=== PATIENT | male | born 1990 | race Caucasian/White ===

== ENCOUNTER 2017-10-19 23:37 | Emergency (ER) | payer OTHER ==
--- NOTE | 2017-10-19 23:52 | ER Report ---
History and Physical Time Seen By MD: 23:51 Hx. of Stated Complaint: PT REPORTS FEVER AND SOB AFTER IMMUNIZATIONS TODAY. HPI/ROS CHIEF COMPLAINT: fevers HISTORY OF PRESENT ILLNESS: This is a 27 year old male. he has fevers tonight. Had a sore throat yesterday, and was feeling a little short of breath tonight. Mild cough. Had immunizations today. Took Ibuprofen 200mg over the counter tablet x1 earlier today. No chest pain. Normal bowels without diarrhea. Normal urination without dysuria. Had diffuse musculoskeletal pain. Reports may students sick and he works in the dorms as RA maintenance supervisor mechanical. Allergies: Coded Allergies: No Known Drug Allergies (Unverified , 10/19/17) Home Meds No Active Prescriptions or Reported Meds Reviewed Nurses Notes: Yes Hx Substance Use Disorder: No Hx Alcohol Use: No Constitutional Vital Sign - Last 24 Hours 10/19/17 10/20/17 10/20/17 23:43 01:14 01:29 Temp 102.2 100.2 Pulse 114 110 85 Resp 24 16 B/P (MAP) 133/82 128/88 (101) Pulse Ox 92 92 O2 Delivery Room Air Room Air Physical Exam General Appearance: The patient is alert, has no immediate need for airway protection and no current signs of toxicity. Eyes: Pupils equal and round no injection. ENT: Normal oral mucosa. Moist mucous membranes. Tympanic membranes are normal. Neck: Neck is supple and non tender. Respiratory: Chest is non tender, lungs are clear to auscultation. Cardiac: regular rate and rhythm Gastrointestinal: Abdomen is soft and non tender, no masses, bowel sounds normal. Musculoskeletal: Extremities have full range of motion. Diffuse musculoskeletal pain. Skin: No rashes or lesions. DIFFERENTIAL DIAGNOSIS: After history and physical exam differential diagnosis was considered for fever, could be due to immunizations, but could be due to viral syndrome or pulmonary infectious process. Medical Decision Making Data Points Result Diagram: 10/19/17 4735 10/19/17 2704 Laboratory Hematology Test 10/19/17 23:45 10/20/17 00:07 Red Blood Count 5.69 M/uL (4.00-5.60) Mean Corpuscular Volume 81.8 fL (80.0-96.0) Mean Corpuscular Hemoglobin 28.8 pg (26.0-33.0) Mean Corpuscular Hemoglobin Concent 35.2 g/dL (32.0-36.0) Red Cell Distribution Width 13.1 % (11.5-14.5) Mean Platelet Volume 7.5 fL (7.2-11.1) Neutrophils (%) (Auto) 90.0 % (39.4-72.5) Lymphocytes (%) (Auto) 3.5 % (17.6-49.6) Monocytes (%) (Auto) 5.9 % (4.1-12.4) Eosinophils (%) (Auto) 0.3 % (0.4-6.7) Basophils (%) (Auto) 0.3 % (0.3-1.4) Nucleated RBC Relative Count (auto) 0.0 /100WBC Neutrophils # (Auto) 6.5 K/uL (2.0-7.4) Lymphocytes # (Auto) 0.3 K/uL (1.3-3.6) Monocytes # (Auto) 0.4 K/uL (0.3-1.0) Eosinophils # (Auto) 0.0 K/uL (0.0-0.5) Basophils # (Auto) 0.0 K/uL (0.0-0.1) Nucleated RBC Absolute Count (auto) 0.00 K/uL Erythrocyte Sedimentation Rate 7 mm/HOUR (0-15) Sodium Level 138 mmol/L (137-145) Potassium Level 3.5 mmol/L (3.5-5.0) Chloride Level 100 mmol/L (98-107) Carbon Dioxide Level 22 mmol/L (22-30) Blood Urea Nitrogen 14 mg/dl (9-21) Creatinine 0.80 mg/dl (0.66-1.25) Glomerular Filtration Rate Calc > 60.0 Random Glucose 158 mg/dl (75-110) Calcium Level 9.6 mg/dl (8.4-10.2) Total Bilirubin 0.6 mg/dl (0.2-1.3) Aspartate Amino Transf (AST/SGOT) 36 U/L (0-35) Alanine Aminotransferase (ALT/SGPT) 42 U/L (0-56) Alkaline Phosphatase 39 U/L (0-126) Total Protein 7.9 g/dl (6.3-8.2) Albumin 4.6 g/dl (3.5-5.0) Influenza Virus Type A (PCR) Negative (NEGATIVE) Influenza Virus Type B (PCR) Negative (NEGATIVE) Chemistry Test 10/19/17 23:45 10/20/17 00:07 White Blood Count 7.2 k/uL (4.5-11.0) Red Blood Count 5.69 M/uL (4.00-5.60) Hemoglobin 16.4 g/dL (14.0-18.0) Hematocrit 46.6 % (42.0-52.0) Mean Corpuscular Volume 81.8 fL (80.0-96.0) Mean Corpuscular Hemoglobin 28.8 pg (26.0-33.0) Mean Corpuscular Hemoglobin Concent 35.2 g/dL (32.0-36.0) Red Cell Distribution Width 13.1 % (11.5-14.5) Platelet Count 176 K/uL (150-450) Mean Platelet Volume 7.5 fL (7.2-11.1) Neutrophils (%) (Auto) 90.0 % (39.4-72.5) Lymphocytes (%) (Auto) 3.5 % (17.6-49.6) Monocytes (%) (Auto) 5.9 % (4.1-12.4) Eosinophils (%) (Auto) 0.3 % (0.4-6.7) Basophils (%) (Auto) 0.3 % (0.3-1.4) Nucleated RBC Relative Count (auto) 0.0 /100WBC Neutrophils # (Auto) 6.5 K/uL (2.0-7.4) Lymphocytes # (Auto) 0.3 K/uL (1.3-3.6) Monocytes # (Auto) 0.4 K/uL (0.3-1.0) Eosinophils # (Auto) 0.0 K/uL (0.0-0.5) Basophils # (Auto) 0.0 K/uL (0.0-0.1) Nucleated RBC Absolute Count (auto) 0.00 K/uL Erythrocyte Sedimentation Rate 7 mm/HOUR (0-15) Glomerular Filtration Rate Calc > 60.0 Calcium Level 9.6 mg/dl (8.4-10.2) Total Bilirubin 0.6 mg/dl (0.2-1.3) Aspartate Amino Transf (AST/SGOT) 36 U/L (0-35) Alanine Aminotransferase (ALT/SGPT) 42 U/L (0-56) Alkaline Phosphatase 39 U/L (0-126) Total Protein 7.9 g/dl (6.3-8.2) Albumin 4.6 g/dl (3.5-5.0) Influenza Virus Type A (PCR) Negative (NEGATIVE) Influenza Virus Type B (PCR) Negative (NEGATIVE) EKG/Imaging Imaging TWO VIEW CHEST 10/19/2017 11:58 PM. INDICATION: cough, fever COMPARISON: None. FINDINGS: Lungs are well-expanded. The lungs are clear. No pneumothorax or pleural effusion. Pulmonary vasculature is unremarkable. Heart size is normal. IMPRESSION: Normal. Report Dictated By: Eddie Carpenter MD at 10/20/2017 12:28 AM ED Course/Re-evaluation Clinical Indication for ER IV: Hydration, IV Access ED Course Labs and imaging unremarkable. Patient has mild improvement after Tylenol 1000mg oral dose. Had a liter of normal saline IV. Later was given Ibuprofen 600mg oral dose. Decision to Disposition Date: Oct 20, 2017 Decision to Disposition Time: 01:20 Depart Departure Latest Vital Signs Vital Signs Date Time Temp Pulse Resp B/P (MAP) Pulse Ox O2 Delivery O2 Flow Rate FiO2 10/20/17 01:29 85 16 128/88 (101) 92 Room Air 10/20/17 01:14 100.2 Impression: Primary Impression: Fever Additional Impression: Viral syndrome Condition: Improved Disposition: HOME OR SELF-CARE New Scripts No Active Prescriptions or Reported Meds Patient Instructions: Fever in Adults (ED), Viral Syndrome (ED) Additional Instructions: You can take Ibuprofen 200mg over the counter tablets, 3 tablets every 6 hours as needed for fever or pain. Tylenol 500mg over the counter tablets, take 2 tablets every 6 hours as needed for fever or pain. Rest and increase fluid intake over the next few days. Problem Qualifiers Primary Impression: Fever Fever type: unspecified Qualified Codes: R50.9 - Fever, unspecified PAOLO KEITH MD Oct 19, 2017 23:51
[2017-10-20] MEDS ORDERED: ACETAMINOPHEN 500 MG TAB PO ONE
[2017-10-20 00:10] LABS: PLATELET COUNT, AUTOMATED 176 K/uL (150-450)
--- NOTE | 2017-10-20 00:33 | RADIOLOGY IMAGING REPORT ---
FACILITY: [facility] [place] PATIENT NAME: Jeremiah Moscoso : 1990 MR: [id number] V: [id number] EXAM DATE: ORDERING PHYSICIAN: PAOLO KEITH TECHNOLOGIST: Location: [facility] [place] Patient: Jeremiah Moscoso : 1990 Visit/Account:[id number] Date of Sevice: 10/19/2017 TWO VIEW CHEST 10/19/2017 11:58 PM. INDICATION: cough, fever COMPARISON: None. FINDINGS: Lungs are well-expanded. The lungs are clear. No pneumothorax or pleural effusion. Pulmo nary vasculature is unremarkable. Heart size is normal. IMPRESSION: Normal. Report Dictated By: Eddie Carpenter MD at 10/20/2017 12:28 AM Report E-Signed By: Eddie Carpenter MD at 10/20/2017 12:29 AM WSN:[id number]
[2017-10-20] MEDS ORDERED: IBUPROFEN 600 MG TAB PO ONE (01:05)
[2017-10-20 01:29] VITALS: BP 128/88
== END 2017-10-20 01:35 | disposition home or self-care (01) ==
LOC: ER 23:44
DX: B34.9 Viral infection, unspecified (principal)
CPT/HCPCS: 71046; 82040; 82247; 82310; 82374; 82435; 82565; 82947; 84075; 84132; 84155; 84295; 84450; 84460; 84520; 85025; 85651; 87502; 99283